=== PATIENT | female | born 1935 | race Caucasian/White ===

== ENCOUNTER 2017-02-28 13:56 | Emergency (ER) | payer MEDICARE, BC ==
[2017-02-28] MEDS ORDERED: LORAZEPAM 2 MG/ML VIAL IM ONE (14:27)
[2017-02-28] MEDS ORDERED: KETOROLAC 30 MG/ML VIAL IM ONE (14:27)
--- NOTE | 2017-02-28 14:36 | Emergency Department Record ---
History of Present Illness - General Chief Complaint: Back Pain/Injury Stated Complaint: BACK PAIN Time Seen by Provider: 02/28/17 14:18 Source: Patient, RN notes reviewed - History of Present Illness Initial Comments: 5 -6 days of thoracic back pain. twisted or slept on it wrong and she has chronic back pain. MD Complaint: Back pain -: Unknown Similar Symptoms Previously: Yes Place: Home Radiation: Other Quality: Aching Consistency: Constant Improves With: None Worsens With: None Context: Fall Associated Symptoms: Denies other symptoms - Related Data Home Medications Medication Instructions Recorded Confirmed Last Taken Amlodipine Besylate [Norvasc] 10 mg PO DAILY 02/28/17 02/28/17 Unknown Aspirin Chewable 81 mg PO DAILY 02/28/17 02/28/17 Unknown Brimonidine Tartrate 1 drop OP BID 02/28/17 02/28/17 Unknown Loratadine [Claritin] 10 mg PO DAILY 02/28/17 02/28/17 Unknown Olmesartan Medoxomil [Benicar] 40 mg PO DAILY 02/28/17 02/28/17 Unknown Previous Rx's Medication Instructions Recorded Cyclobenzaprine HCl [Flexeril] 5 mg PO TID #30 tab 02/28/17 Allergies Allergy/AdvReac Type Severity Reaction Status Date / Time lisinopril Allergy Severe SWELLING Verified 02/28/17 14:04 OF THE LIPS citalopram [From Celexa] Allergy PT UNSURE Verified 02/28/17 14:54 OF REACTION losartan Allergy PT UNSURE Verified 02/28/17 14:54 OF REACTION Travel Screening - Travel/Exposure Within Last 30 Days Have you traveled within the last 30 days?: No Review of Systems Reviewed: No additional complaints except as noted below Constitutional: Reports: As per HPI. Denies: Chills, Fever, Malaise, Night sweats, Weakness, Weight change Eyes: Reports: As per HPI. Denies: Eye discharge, Eye pain, Photophobia, Vision change ENT: Reports: As per HPI. Denies: Congestion, Dental pain, Ear pain, Epistaxis , Hearing loss, Throat pain Respiratory: Reports: As per HPI. Denies: Cough, Dyspnea, Hemoptysis, Stridor, Wheezes Cardiovascular: Reports: As per HPI. Denies: Arrhythmia, Chest pain, Dyspnea on exertion, Edema, Murmurs, Orthopnea, Palpitations, Paroxysmal nocturnal dyspnea, Rheumatic Fever, Syncope Endocrine: Reports: As per HPI. Denies: Fatigue, Heat or cold intolerance, Polydipsia, Polyuria Gastrointestinal: Reports: As per HPI. Denies: Abdominal pain, Constipation, Diarrhea, Hematemesis, Hematochezia, Melena, Nausea, Vomiting Genitourinary: Reports: As per HPI. Denies: Abnormal menses, Discharge, Dyspareunia, Dysuria, Frequency, Hematuria, Incontinence, Retention, Urgency Musculoskeletal: Reports: As per HPI, Back pain. Denies: Arthralgia, Gout, Joint swelling, Myalgia, Neck pain Skin: Reports: As per HPI. Denies: Bruising, Change in color, Change in hair/ nails, Lesions, Pruritus, Rash Neurological: Reports: As per HPI. Denies: Abnormal gait, Confusion, Headache, Numbness, Paresthesias, Seizure, Tingling, Tremors, Vertigo, Weakness Psychiatric: Reports: As per HPI. Denies: Anxiety, Auditory hallucinations, Depression, Homicidal thoughts, Suicidal thoughts, Visual hallucinations Hematological/Lymphatic: Reports: As per HPI. Denies: Anemia, Blood Clots, Easy bleeding, Easy bruising, Swollen glands Past Medical History - SOCIAL HISTORY Smoking Status: Never smoker Alcohol Use: None Drug Use: None - RESPIRATORY Hx Respiratory Disorders: No - CARDIOVASCULAR Hx Cardio Disorders: Yes Hx Hypertension: Yes Comment:: high cholesterol - NEURO Hx Neuro Disorders: No - GI Hx GI Disorders: No - Hx Genitourinary Disorders: No - ENDOCRINE Hx Endocrine Disorders: No - MUSCULOSKELETAL Hx Musculoskeletal Disorders: Yes - PSYCH Hx Psych Problems: Yes Hx Anxiety: Yes - HEMATOLOGY/ONCOLOGY Hx Hematology/Oncology Disorders: No Family Medical History Any Significant Family History?: No Physical Exam - General General Appearance: Alert, Oriented x3, Cooperative, No acute distress - Head Head exam: Normal inspection - Eye Eye exam: Normal appearance, PERRL Pupils: Normal accommodation - ENT ENT exam: Normal exam, Mucous membranes moist, Normal external ear exam, Normal orophraynx, TM's normal bilaterally Ear exam: Normal external inspection. negative: External canal tenderness Nasal Exam: Normal inspection. negative: Discharge, Sinus tenderness Mouth exam: Normal external inspection, Tongue normal Teeth exam: Normal inspection. negative: Dental caries Throat exam: Normal inspection. negative: Tonsillar erythema, Tonsillar exudate - Neck Neck exam: Normal inspection, Full ROM. negative: Tenderness - Respiratory Respiratory exam: Normal lung sounds bilaterally. negative: Respiratory distress - Cardiovascular Cardiovascular Exam: Regular rate, Normal rhythm, Normal heart sounds - GI/Abdominal GI/Abdominal exam: Soft, Normal bowel sounds. negative: Tenderness - Rectal Rectal exam: Deferred - exam: Deferred - Extremities Extremities exam: Normal inspection, Full ROM, Normal capillary refill. negative: Tenderness - Back Back exam: Reports: Normal inspection, Full ROM, Muscle spasm, Tenderness. Denies: Rash noted - Neurological Neurological exam: Alert, Normal gait, Oriented X3, Reflexes normal - Psychiatric Psychiatric exam: Normal affect, Normal mood - Skin Skin exam: Dry, Intact, Normal color, Warm Course Vital Signs 02/28/17 13:58 Temperature 98.1 F Pulse Rate 73 Respiratory 18 Rate Blood Pressure 124/76 Pulse Ox 100 - Reevaluation(s) Reevaluation #1: feeling better 02/28/17 14:55 Medical Decision Making - Lab Data Result diagrams: 02/28/17 14:31 Disposition Clinical Impression: Strain of thoracic region Qualifiers: Encounter type: initial encounter Qualified Code(s): S29.019A - Strain of muscle and tendon of unspecified wall of thorax, initial encounter Disposition: Home, Self-Care Condition: (1) Good Instructions: Low Back Strain (ED) Additional Instructions: follow up with primary DrGilles in one week Prescriptions: Cyclobenzaprine HCl [Flexeril] 5 mg PO TID #30 tab Forms: Patient Portal Access Time of Disposition: 14:56 Quality - Quality Measures Quality Measures: N/A - Blood Pressure Screening Does Patient Have Any of the Following: Active Dx of HTN Blood Pressure Classification: Pre-Hypertensive BP Reading Systolic Measurement: 124 Diastolic Measurement: 76 Screening for High Blood Pressure: Patient Exclusion, Hx of HTN [G9744]
[2017-02-28 15:02] LABS: BASO % 0.5 % (0-6); EOS % 1.8 % (0-6); GRAN % 67.8 % (47-80); HEMATOCRIT 23.7 % (35.0-47.0); HEMOGLOBIN 7.4 gm/dl (11.6-16.0); LYMPH % 18.8 % (16-45); MEAN CELL VOLUME 101.3 fl (81-97); MEAN CORPUSCULAR HEMOGLOBIN 31.6 pg (27-33); MEAN CORPUSCULAR HGB CONC 31.2 g/dl (32-36); MEAN PLATELET VOLUME 9.2 fl (7.4-10.4); MONO % 11.1 % (0-9); PLATELET COUNT 346 K/uL (130-400); RED BLOOD COUNT 2.34 M/uL (3.80-5.40); RED CELL DISTRIBUTION WIDTH 13.8 % (11.5-14.5); WHITE BLOOD COUNT W/O DIFF 5.6 K/uL (4.2-12.2)
== END 2017-02-28 15:21 | disposition home or self-care (01) ==
LOC: ER 13:56
DX: S29.019A Strain of muscle and tendon of unspecified wall of thorax, initial encounter (principal); X50.1XXA Overexertion from prolonged static or awkward postures, initial encounter; Y92.009 Unspecified place in unspecified non-institutional (private) residence as the place of occurrence of the external cause
CPT/HCPCS: 85025; 96372; 99283; J1885

== ENCOUNTER 2017-03-08 15:51 | Emergency (ER) | payer MEDICARE, BC ==
--- NOTE | 2017-03-08 16:07 | Emergency Department Record ---
History of Present Illness - General Chief Complaint: Back Pain/Injury Stated Complaint: BACK PAIN Time Seen by Provider: 03/08/17 16:06 Source: Patient Mode of Arrival: Ambulatory Limitations: No limitations - History of Present Illness Initial Comments: The patient is here due to worsening of her chronic back pain which she has been experiencing for many years. She states it worsened 2.5 years ago after a fall and now seems to hurt worse over the last 2 weeks. She denies any fall or trauma and states the pain is mainly in the low back. It is much worse with movement and twisting. She denies any CP, SOB, AP, or any leg numbness, weakness or any bowel or bladder issues. The patient used to see Dr. Wilson who did give her Morphine shots for it which did help but he has since retired. Now she has been taking Tylenol and Flexeril for it with little resolution. MD Complaint: Back pain Onset/Timin -: Week(s) Similar Symptoms Previously: Yes Place: Home Radiation: None Quality: Aching Consistency: Constant Improves With: None Worsens With: None Context: Fall Associated Symptoms: Denies other symptoms - Related Data Allergies Allergy/AdvReac Type Severity Reaction Status Date / Time lisinopril Allergy Severe SWELLING Verified 02/28/17 14:04 OF THE LIPS citalopram [From Celexa] Allergy PT UNSURE Verified 02/28/17 14:54 OF REACTION losartan Allergy PT UNSURE Verified 02/28/17 14:54 OF REACTION Travel Screening - Travel/Exposure Within Last 30 Days Have you traveled within the last 30 days?: No - Travel/Exposure Within Last Year Have you traveled outside the [place] in the last year?: No - Additonal Travel Details Have you been exposed to anyone with a communicable illness?: No - Travel Symptoms Symptom Screening: None Review of Systems Constitutional: Denies: Chills, Fever Eyes: Denies: Eye discharge ENT: Denies: Congestion Respiratory: Denies: Cough, Dyspnea Cardiovascular: Denies: Arrhythmia, Chest pain Endocrine: Denies: Fatigue Gastrointestinal: Denies: Abdominal pain, Diarrhea, Melena, Nausea, Vomiting Genitourinary: Denies: Dysuria Musculoskeletal: Reports: Back pain (chronic.) Skin: Denies: Bruising Neurological: Denies: Abnormal gait Past Medical History - SOCIAL HISTORY Smoking Status: Current every day smoker Alcohol Use: None Drug Use: None - RESPIRATORY Hx Respiratory Disorders: No Hx Bronchitis: Yes Comment:: emphysema - CARDIOVASCULAR Hx Cardio Disorders: Yes Hx Hypertension: Yes Comment:: high cholesterol - NEURO Hx Neuro Disorders: No - GI Hx GI Disorders: No - Hx Genitourinary Disorders: No - ENDOCRINE Hx Endocrine Disorders: No - MUSCULOSKELETAL Hx Musculoskeletal Disorders: Yes - PSYCH Hx Psych Problems: Yes Hx Anxiety: Yes - HEMATOLOGY/ONCOLOGY Hx Hematology/Oncology Disorders: No Hx Anemia: Yes Family Medical History Any Significant Family History?: No Physical Exam - General General Appearance: Alert, Oriented x3, Cooperative, No acute distress - Head Head exam: Atraumatic, Normocephalic - Eye Eye exam: Normal appearance, PERRL. negative: Conjunctival injection - Neck Neck exam: Normal inspection, Full ROM. negative: Tenderness - Respiratory Respiratory exam: Normal lung sounds bilaterally. negative: Respiratory distress - Cardiovascular Cardiovascular Exam: Regular rate, Normal rhythm, Normal heart sounds - GI/Abdominal GI/Abdominal exam: Soft, Normal bowel sounds. negative: Distended, Rigid, Tenderness - Rectal Rectal exam: Deferred (The patient refused the rectal exam.) - Extremities Extremities exam: Normal inspection, Full ROM, Normal capillary refill. negative: Tenderness - Back Back exam: Reports: Normal inspection, Paraspinal tenderness (There is mild lumbar paraspinal > spinal tenderness to palpation.), Vertebral tenderness, Other (Neg SLR bilaterally.) - Neurological Neurological exam: Alert, Normal gait, Oriented X3 (The patient is oriented to name, age, Bday, place, year, and address. She is ambulating normally and is demonstrating appropriate judgement. ), Reflexes normal. negative: Abnormal gait, Motor sensory deficit - Skin Skin exam: Pallor Course Vital Signs 03/08/17 15:57 Temperature 98.3 F Pulse Rate 60 Respiratory 16 Rate Blood Pressure 115/45 Pulse Ox 93 L - Reevaluation(s) Reevaluation #1: The patient is doing well and is ambulating normally. I explained to her that her blood count is dangerously low and and she does need to be admitted to the hospital. The patient is reluctant to be admitted due to problems with her pets and other issues that she needs to get done at home and would like to leave A. I explained to her that by leaving she could be risking her life and could go home and have a stroke, pass out and suffer trauma, have an GA, become disabled and even . The patient at this time appears to have proper decision making capacity and understands the risks of refusing and also understands that we cannot be held liable for not admitting her. She was told to return to the ER at any time for re-evaluation. 03/08/17 17:34 03/08/17 18:27 Medical Decision Making - Data Complexity MDM Data: Labs Ordered and/or Reviewed, X-Ray Ordered and/or Reviewed - Lab Data Result diagrams: 03/08/17 16:28 03/08/17 16:28 - Radiology Data Radiology results: Report reviewed (Lumbar films: Advanced DJD.) Disposition Disposition: Discharge Disposition: Against Medical Advice Condition: (3) Guarded Instructions: Gastrointestinal Bleeding (ED) Additional Instructions: Please take Tylenol for pain. Please return to the ER at any time for re- evaluation and admission. Forms: Patient Portal Access Time of Disposition: 17:39 Quality - Quality Measures Quality Measures: N/A - Blood Pressure Screening View Details: Yes Does Patient Have Any of the Following: No Blood Pressure Classification: Normal BP Reading Systolic Measurement: 117 Diastolic Measurement: 52 Screening for High Blood Pressure: < Normal BP, F/U Not Required > [G8783]
[2017-03-08] MEDS ORDERED: ACETAMINOPHEN 325 MG TAB PO ONE (16:19)
[2017-03-08 16:32] LABS: BASO % 0.6 % (0-6); HEMATOCRIT 20.5 % (35.0-47.0); LYMPH % 19.6 % (16-45); MEAN CELL VOLUME 105.7 fl (81-97); MEAN CORPUSCULAR HGB CONC 30.2 g/dl (32-36); MEAN PLATELET VOLUME 9.1 fl (7.4-10.4); MONO % 11.8 % (0-9); PLATELET COUNT 262 K/uL (130-400); RED BLOOD COUNT 1.94 M/uL (3.80-5.40); RED CELL DISTRIBUTION WIDTH 15.1 % (11.5-14.5); WHITE BLOOD COUNT W/O DIFF 6.7 K/uL (4.2-12.2)
[2017-03-08 16:35] LABS: MEAN CORPUSCULAR HEMOGLOBIN 31.9 pg (27-33)
[2017-03-08 16:36] LABS: HEMOGLOBIN 6.2 gm/dl (11.6-16.0)
[2017-03-08 16:46] LABS: ANION GAP 10.4 (7-16); CARBON DIOXIDE 18.6 mmol/L (22-30); CREATININE 1.2 mg/dL (0.52-1.04)
[2017-03-08 16:57] LABS: BILIRUBIN,TOTAL 0.45 mg/dL (0.2-1.3); TOTAL PROTEIN 6.5 gm/dL (6.3-8.2)
--- NOTE | 2017-03-09 16:23 | RADIOLOGY REPORT ---
EXAM: LUMBAR SPINE / AP LAT HISTORY: FELL IN BATHTUB. LOWER LUMBAR INJURY AND PAIN. TECHNIQUE: Three-view, lumbar spine. COMPARISON: None. ENCOUNTER: Initial. FINDINGS: Five lumbar segments. Osteopenia. Mild levoconvex scoliosis of the lumbar spine. No acute fracture or subluxation. Moderate to advanced degenerative disc disease at L4-5 and L5-S1 with mild to moderate disc disease at remaining levels. Mild facet arthropathy, lower lumbar spine. Severe aortoiliac calcification. IMPRESSION: 1. NO ACUTE FRACTURE OR SUBLUXATION OF THE LUMBAR SPINE. 2. MILD LEVOCONVEX SCOLIOSIS. 3. MULTILEVEL DISC DISEASE MOST PROMINENT AT L4-5 AND L5-S1. JOB NUMBER: [id number] MTDD
--- NOTE | 2017-03-14 18:37 | Emergency Department Record ---
History of Present Illness - General Chief Complaint: Back Pain/Injury Stated Complaint: BACK PAIN Time Seen by Provider: 03/08/17 16:06 Source: Patient Limitations: No limitations - History of Present Illness Onset/Timin -: Week(s) Similar Symptoms Previously: Yes Place: Home Radiation: None Quality: Aching Consistency: Constant Improves With: None Worsens With: None Context: Fall Associated Symptoms: Denies other symptoms - Related Data Allergies Allergy/AdvReac Type Severity Reaction Status Date / Time lisinopril Allergy Severe SWELLING Verified 02/28/17 14:04 OF THE LIPS citalopram [From Celexa] Allergy PT UNSURE Verified 02/28/17 14:54 OF REACTION losartan Allergy PT UNSURE Verified 02/28/17 14:54 OF REACTION Travel Screening - Travel/Exposure Within Last 30 Days Have you traveled within the last 30 days?: No - Travel/Exposure Within Last Year Have you traveled outside the [place] in the last year?: No - Additonal Travel Details Have you been exposed to anyone with a communicable illness?: No - Travel Symptoms Symptom Screening: None Review of Systems Constitutional: Denies: Chills, Fever Eyes: Denies: Eye discharge ENT: Denies: Congestion Respiratory: Denies: Cough, Dyspnea Cardiovascular: Denies: Arrhythmia, Chest pain Endocrine: Denies: Fatigue Gastrointestinal: Denies: Abdominal pain, Diarrhea, Melena, Nausea, Vomiting Genitourinary: Denies: Dysuria Musculoskeletal: Reports: Back pain (chronic.) Skin: Denies: Bruising Neurological: Denies: Abnormal gait Past Medical History - SOCIAL HISTORY Smoking Status: Current every day smoker Alcohol Use: None Drug Use: None - RESPIRATORY Hx Respiratory Disorders: No Hx Bronchitis: Yes Comment:: emphysema - CARDIOVASCULAR Hx Cardio Disorders: Yes Hx Hypertension: Yes Comment:: high cholesterol - NEURO Hx Neuro Disorders: No - GI Hx GI Disorders: No - Hx Genitourinary Disorders: No - ENDOCRINE Hx Endocrine Disorders: No - MUSCULOSKELETAL Hx Musculoskeletal Disorders: Yes - PSYCH Hx Psych Problems: Yes Hx Anxiety: Yes - HEMATOLOGY/ONCOLOGY Hx Hematology/Oncology Disorders: No Hx Anemia: Yes Family Medical History Any Significant Family History?: No Physical Exam - General Limitations: No limitations Course Vital Signs 03/08/17 03/08/17 15:57 17:46 Temperature 98.3 F Pulse Rate 60 57 L Respiratory 16 18 Rate Blood Pressure 115/45 117/52 Pulse Ox 93 L 96 Medical Decision Making - Lab Data Result diagrams: 03/08/17 16:28 03/08/17 16:28 Lab Results 03/08/17 03/08/17 03/08/17 Range/Units 16:24 16:28 16:28 WBC 6.7 (4.2-12.2) K/uL RBC 1.94 L (3.80-5.40) M/uL Hgb 6.2 L* (11.6-16.0) gm/dl Hct 20.5 L (35.0-47.0) % MCV 105.7 H (81-97) fl MCH 31.9 (27-33) pg MCHC 30.2 L (32-36) g/dl RDW 15.1 H (11.5-14.5) % Plt Count 262 (130-400) K/uL MPV 9.1 (7.4-10.4) fl Gran % 65.0 (47-80) % Lymphocytes % 19.6 (16-45) % Monocytes % 11.8 H (0-9) % Eosinophils % 3.0 (0-6) % Basophils % 0.6 (0-6) % PT INR APTT Sodium 133 L (136-145) mmol/L Potassium 5.2 H (3.5-5.1) mmol/L Chloride 104 (98-107) mmol/L Carbon Dioxide 18.6 L (22-30) mmol/L Anion Gap 10.4 (7-16) BUN 26 H (7-17) mg/dL Creatinine 1.2 H (0.52-1.04) mg/dL Estimated GFR 46 ml/min Random Glucose 102 (70-110) mg/dL Calcium 9.0 (8.5-10.1) mg/dL Total Bilirubin 0.45 (0.2-1.3) mg/dL Direct Bilirubin 0.0 (0-0.3) mg/dL AST 38 H (14-36) U/L ALT 53 H (9-52) U/L Alkaline Phosphatase 72 (38-126) U/L Total Protein 6.5 (6.3-8.2) gm/dL Albumin 4.0 (3.5-5.0) gm/dL 09/07/17 Range/Units 16:40 WBC (4.2-12.2) K/uL RBC (3.80-5.40) M/uL Hgb (11.6-16.0) gm/dl Hct (35.0-47.0) % MCV (81-97) fl MCH (27-33) pg MCHC (32-36) g/dl RDW (11.5-14.5) % Plt Count (130-400) K/uL MPV (7.4-10.4) fl Gran % (47-80) % Lymphocytes % (16-45) % Monocytes % (0-9) % Eosinophils % (0-6) % Basophils % (0-6) % PT Cancelled INR Cancelled APTT Cancelled Sodium (136-145) mmol/L Potassium (3.5-5.1) mmol/L Chloride (98-107) mmol/L Carbon Dioxide (22-30) mmol/L Anion Gap (7-16) BUN (7-17) mg/dL Creatinine (0.52-1.04) mg/dL Estimated GFR ml/min Random Glucose (70-110) mg/dL Calcium (8.5-10.1) mg/dL Total Bilirubin (0.2-1.3) mg/dL Direct Bilirubin (0-0.3) mg/dL AST (14-36) U/L ALT (9-52) U/L Alkaline Phosphatase (38-126) U/L Total Protein (6.3-8.2) gm/dL Albumin (3.5-5.0) gm/dL Disposition Clinical Impression: GI bleed Qualifiers: GI bleed type/associated pathology: unspecified gastrointestinal hemorrhage type Qualified Code(s): K92.2 - Gastrointestinal hemorrhage, unspecified Disposition: Against Medical Advice Condition: (3) Guarded Instructions: Gastrointestinal Bleeding (ED) Additional Instructions: Please take Tylenol for pain. Please return to the ER at any time for re- evaluation and admission. Forms: Patient Portal Access Quality - Quality Measures Quality Measures: N/A - Blood Pressure Screening View Details: Yes Does Patient Have Any of the Following: No Blood Pressure Classification: Normal BP Reading Systolic Measurement: 117 Diastolic Measurement: 52 Screening for High Blood Pressure: < Normal BP, F/U Not Required > [G8783]
== END 2017-03-08 17:47 | disposition left against medical advice (07) ==
LOC: ER 15:51
DX: K92.2 Gastrointestinal hemorrhage, unspecified (principal); M54.5 Low back pain; I10 Essential (primary) hypertension; F17.210 Nicotine dependence, cigarettes, uncomplicated
CPT/HCPCS: 72100; 80048; 80076; 85025; 99283; 99284

== ENCOUNTER 2017-06-04 12:12 | Day surgery (SDC) | payer MEDICARE, BC ==
[2017-06-04] MEDS ORDERED: LIDOCAINE 2% MDV (20MG/ML) 20ML VIAL IV ONE (12:13)
[2017-06-04] MEDS ORDERED: PROPOFOL 10 MG/ML VIAL IV ONE (12:13)
[2017-06-04] MEDS ORDERED: FENTANYL PF 100MCG/2ML VIAL IV ONE (12:13)
--- NOTE | 2017-06-05 13:10 | Operative Note ---
DATE OF SURGERY: 06/04/2017 OPERATION: ESOPHAGOGASTRODUODENOSCOPY. INDICATION: Recently discovered gastric ulcerations, one which was actively bleeding, status post treatment endoscopically and with Protonix 40 mg taken twice daily. The patient returns at this time to check for ulcer healing. ANESTHESIA: Intravenous sedation was administered by the department of anesthesiology and included Diprivan titrated to effect. PROCEDURE: Following informed consent from this alert individual including a discussion of the risks and benefits of the procedure and an opportunity for the patient to ask questions, the patient was in the left lateral decubitus position. The Olympus [id number] video endoscope was inserted into the esophagus without resistance. The proximal esophagus had a normal appearance with normal folds and distensibility. The mid esophagus likewise was free from changes. There was a focal area of erythema at the squamocolumnar junction suggesting mild esophagitis but no ulcerations or erosions were noted. The stomach was entered. The gastric fundus and pars media had a normal appearance with normal folds and distensibility. The antrum evaluated circumferentially was also normal. The pylorus was patent. The duodenal bulb, sweep and descending duodenum were examined in a serial fashion and found to be normal. The endoscope was then withdrawn back into the body of the stomach. Retroflexion accomplished following air insufflation failed to demonstrate any additional changes. The endoscope was then straightened and withdrawn. The patient tolerated the procedure well and was returned to the recovery area in stable condition. IMPRESSION: 1. Healed gastric ulcerations. 2. Mild distal esophagitis. RECOMMENDATION: At this point, the patient can be maintained on Protonix 40 mg once daily. Followup will be with primary care physician, Dr. Giles. As always, thank you for allowing me to participate in the care of your patient. CC: Dr. Priti NICK
== END 2017-06-04 14:00 | disposition home or self-care (01) ==
LOC: HOP 12:12
PROVIDERS: ATTEND Internal Medicine Gastroenterology
DX: K25.0 Acute gastric ulcer with hemorrhage (principal); K20.9 Esophagitis, unspecified; D64.9 Anemia, unspecified; I10 Essential (primary) hypertension; J43.9 Emphysema, unspecified
CPT/HCPCS: 43235; 00740; J3010

== ENCOUNTER 2017-11-14 23:31 | Emergency (ER) | payer MEDICARE, BC ==
[2017-11-15 00:08] LABS: MEAN CELL VOLUME 110.1 fl (81-97); MEAN CORPUSCULAR HEMOGLOBIN 33.3 pg (27-33); MEAN CORPUSCULAR HGB CONC 30.3 g/dl (32-36); MEAN PLATELET VOLUME 9.6 fl (7.4-10.4); PLATELET COUNT 213 K/uL (130-400); RED BLOOD COUNT 1.59 M/uL (3.80-5.40); RED CELL DISTRIBUTION WIDTH 17.2 % (11.5-14.5)
[2017-11-15 00:09] LABS: HEMATOCRIT 17.5 % (35.0-47.0); HEMOGLOBIN 5.3 gm/dl (11.6-16.0)
[2017-11-15 00:18] LABS: ALB/GLOB RATIO 1.6 (1.1-1.8); ALBUMIN 3.6 g/dL (4.0-5.0); BILIRUBIN,TOTAL 0.3 mg/dL (0.2-1.0); TOTAL PROTEIN 5.9 g/dL (6.6-8.7)
--- NOTE | 2017-11-15 00:18 | Emergency Department Record ---
History of Present Illness - General Chief Complaint: Recheck - Other Stated Complaint: TRANSFUSION Time Seen by Provider: 11/14/17 23:34 Source: Patient, Family Mode of arrival: Ambulatory Limitations: No limitations - History of Present Illness Initial Comments: pt sent in for hgb of 5.3. pt has a hx of ulcers which have been cauterized by dr ramos. pt denies ap Complaint: Abnormal lab Onset/Timin -: Days(s) Returns Today for: Called because of abnormal lab/test Description of Abnormal Result: hgb 5.3 - Related Data Allergies Allergy/AdvReac Type Severity Reaction Status Date / Time lisinopril Allergy Severe SWELLING Verified 02/28/17 14:04 OF THE LIPS atenolol Allergy low energy Verified 11/15/17 00:06 citalopram [From Celexa] Allergy NAUSEA Verified 11/15/17 00:06 losartan Allergy PT UNSURE Verified 11/15/17 00:06 OF REACTION penicillin G Allergy PT UNSURE Verified 11/15/17 00:06 OF REACTION tioconazole Allergy hypertensio Verified 11/15/17 00:06 [From Monistat 1 n (tioconazole)] Travel Screening - Travel/Exposure Within Last 30 Days Have you traveled within the last 30 days?: No - Travel/Exposure Within Last Year Have you traveled outside the [place] in the last year?: No - Additonal Travel Details Have you been exposed to anyone with a communicable illness?: No - Travel Symptoms Symptom Screening: None Review of Systems Reviewed: No additional complaints except as noted below Constitutional: Reports: As per HPI. Denies: Chills, Fever, Malaise, Night sweats, Weakness, Weight change Eyes: Reports: As per HPI. Denies: Eye discharge, Eye pain, Photophobia, Vision change ENT: Reports: As per HPI. Denies: Congestion, Dental pain, Ear pain, Epistaxis , Hearing loss, Throat pain Respiratory: Reports: As per HPI. Denies: Cough, Dyspnea, Hemoptysis, Stridor, Wheezes Cardiovascular: Reports: As per HPI. Denies: Arrhythmia, Chest pain, Dyspnea on exertion, Edema, Murmurs, Orthopnea, Palpitations, Paroxysmal nocturnal dyspnea, Rheumatic Fever, Syncope Endocrine: Reports: As per HPI. Denies: Fatigue, Heat or cold intolerance, Polydipsia, Polyuria Gastrointestinal: Reports: As per HPI. Denies: Abdominal pain, Constipation, Diarrhea, Hematemesis, Hematochezia, Melena, Nausea, Vomiting Genitourinary: Reports: As per HPI. Denies: Abnormal menses, Discharge, Dyspareunia, Dysuria, Frequency, Hematuria, Incontinence, Retention, Urgency Musculoskeletal: Reports: As per HPI. Denies: Arthralgia, Back pain, Gout, Joint swelling, Myalgia, Neck pain Skin: Reports: As per HPI. Denies: Bruising, Change in color, Change in hair/ nails, Lesions, Pruritus, Rash Neurological: Reports: As per HPI. Denies: Abnormal gait, Confusion, Headache, Numbness, Paresthesias, Seizure, Tingling, Tremors, Vertigo, Weakness Psychiatric: Reports: As per HPI. Denies: Anxiety, Auditory hallucinations, Depression, Homicidal thoughts, Suicidal thoughts, Visual hallucinations Hematological/Lymphatic: Reports: As per HPI. 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 Family Medical History Any Significant Family History?: No Physical Exam - General General Appearance: Alert, Oriented x3, Cooperative, Mild distress - Head Head exam: Normal inspection - Eye Eye exam: Normal appearance, PERRL, EOMI Pupils: Normal accommodation - ENT ENT exam: Normal exam, Mucous membranes moist, Normal external ear exam, Normal orophraynx Ear exam: Normal external inspection. negative: External canal tenderness Nasal Exam: Normal inspection. negative: Discharge, Sinus tenderness Mouth exam: Normal external inspection, Tongue normal Teeth exam: Normal inspection. negative: Dental caries Throat exam: Normal inspection. negative: Tonsillar erythema, Tonsillar exudate - Neck Neck exam: Normal inspection, Full ROM. negative: Tenderness - Respiratory Respiratory exam: Normal lung sounds bilaterally. negative: Respiratory distress - Cardiovascular Cardiovascular Exam: Regular rate, Normal rhythm, Normal heart sounds, Systolic murmur - GI/Abdominal GI/Abdominal exam: Soft, Normal bowel sounds. negative: Tenderness - Rectal Rectal exam: Black stool, Heme (+) stool - exam: Deferred - Extremities Extremities exam: Normal inspection, Full ROM, Normal capillary refill. negative: Tenderness - Back Back exam: Reports: Normal inspection, Full ROM. Denies: Muscle spasm, Rash noted, Tenderness - Neurological Neurological exam: Alert, CN II-XII intact, Normal gait, Oriented X3 - Psychiatric Psychiatric exam: Normal affect, Normal mood - Skin Skin exam: Dry, Intact, Pallor, Warm Course Vital Signs 11/14/17 23:36 Temperature 98.2 F Pulse Rate 70 Respiratory 20 Rate Blood Pressure 99/31 Pulse Ox 100 Medical Decision Making - Lab Data Result diagrams: 11/15/17 00:06 11/15/17 00:03 Lab Results 11/15/17 Range/Units 00:06 WBC 8.0 (4.2-12.2) K/uL RBC 1.59 L (3.80-5.40) M/uL Hgb 5.3 L* (11.6-16.0) gm/dl Hct 17.5 L* (35.0-47.0) % MCV 110.1 H (81-97) fl MCH 33.3 H (27-33) pg MCHC 30.3 L (32-36) g/dl RDW 17.2 H (11.5-14.5) % Plt Count 213 (130-400) K/uL MPV 9.6 (7.4-10.4) fl Gran % [employer] Neutrophils % 65.0 (47-80) % Band Neutrophils % 0.0 (0-5) % Lymphocytes % [employer] Monocytes % [employer] Eosinophils % [employer] Basophils % [employer] Lymphocytes 25.0 (16-45) % Monocytes 11.0 H (0-9) % Basophils 0.0 (0-6) % Eosinophil Count 2.0 (0-6) % Disposition Disposition: Transfer Clinical Impression: GI bleed requiring more than 4 units of blood in 24 hours, ICU, or surgery Disposition: Acute Care Hospital Transfer Transfer To: [facility] Reason For Transfer: needs gi Accepting Physician: dr peter Time Discussed w/Accepting Physician: 00:30 Forms: Patient Portal Access Quality - Quality Measures Quality Measures: N/A - Blood Pressure Screening Does Patient Have Any of the Following: No Blood Pressure Classification: Normal BP Reading Systolic Measurement: 99 Diastolic Measurement: 31 Screening for High Blood Pressure: < Normal BP, F/U Not Required > [G8783]
[2017-11-15 00:26] LABS: ABO GROUP O; RH TYPE POSITIVE
[2017-11-15] MEDS ORDERED: FUROSEMIDE IV 40MG/4ML VIAL IVP ONE (00:26)
[2017-11-15] MEDS ORDERED: PANTOPRAZOLE SODIUM IV 40 MG VIAL IVP ONE (00:26)
[2017-11-15] MEDS ORDERED: LORAZEPAM 2 MG/ML VIAL IV ONE (00:29)
[2017-11-15 00:35] LABS: ANTIBODY SCREEN NEGATIVE (NEGATIVE)
== END 2017-11-15 01:28 | disposition short-term general hospital (02) ==
LOC: ER 23:31
DX: K92.1 Melena (principal); K27.9 Peptic ulcer, site unspecified, unspecified as acute or chronic, without hemorrhage or perforation; R79.89 Other specified abnormal findings of blood chemistry; I10 Essential (primary) hypertension; I50.9 Heart failure, unspecified; I25.10 Atherosclerotic heart disease of native coronary artery without angina pectoris; F17.210 Nicotine dependence, cigarettes, uncomplicated
CPT/HCPCS: 80053; 80061; 84443; 84484; 85025; 85027; 86850; 86900; 86901; 93005; 93010; 96374; 96375; 99284; 99285; C9113; J1940